=== PATIENT | male | born 1940 | race Caucasian/White ===

== ENCOUNTER 2019-06-22 11:35 | Inpatient (IN) | payer MEDICARE, OTHER ==
[~2019-06-22] VITALS: Ht 170.2 cm; Wt 62.6 kg
--- NOTE | 2019-06-22 12:08 | NUR ---
Dr Cui at the bedside for MSE.
--- NOTE | 2019-06-22 12:11 | NUR ---
Pt BIB SMART team and [employer] on 5150 hold, DTS and DTO.PT is awake and verbally responsive, unable to recall date and time. pleasent and cooperative at this time.
[2019-06-22 12:19] LABS: BASOPHILS # (AUTO) 0.1 K/uL (0.0-8.0); BASOPHILS % (AUTO) 0.6 % (0.0-2.0); EOSINOPHILS # (AUTO) 0.1 K/uL (0.0-0.7); EOSINOPHILS % (AUTO) 1.7 % (0.0-7.0); HEMATOCRIT 43.3 % (36.7-47.1); HEMOGLOBIN 14.1 g/dL (12.5-16.3); LYMPHOCYTES # (AUTO) 2.5 K/uL (20.0-40.0); LYMPHOCYTES % (AUTO) 28.7 % (20.5-51.5); MEAN CORPUSCULAR HEMOGLOBIN 28.9 uug (23.8-33.4); MEAN CORPUSCULAR HGB CONC 33 g/dL (32.5-36.3); MEAN CORPUSCULAR VOLUME 88.6 fL (73.0-96.2); MONOCYTES # (AUTO) 0.6 K/uL (2.0-10.0); MONOCYTES % (AUTO) 7.6 % (0.0-11.0); NEUTROPHILS # (AUTO) 5.3 K/uL (1.8-8.9); NEUTROPHILS % (AUTO) 61.4 % (38.5-71.5); PLATELET COUNT (AUTO) 210 K/uL (152-348); RED BLOOD CELL COUNT(AUTO) 4.88 MIL/uL (4.06-5.63); WHITE BLOOD COUNT (AUTO) 8.6 K/uL (3.6-10.2)
[2019-06-22 12:22] LABS: *BILIRUBIN,URIN NEGATIVE (NEGATIVE); *BLOOD, URINE NEGATIVE (NEGATIVE); *CLARITY,URINE CLEAR (CLEAR); *COLOR,URINE YELLOW (YELLOW); *KETONES,URINE NEGATIVE (NEGATIVE); *UROBILINOGEN,URINE 0.2 E.U./dl (NORMAL); LEUKOCYTE ESTERASE ,URINE NEGATIVE (NEGATIVE); NITRITE, URINE NEGATIVE (NEGATIVE); PH,URINE 7.5 (5.0-8.0); UGLUCOSE NEGATIVE (NEGATIVE)
[2019-06-22 12:26] LABS: CARBON DIOXIDE 32 mmol/L (21-32); CHLORIDE 101 mmol/L (98-107); GLUCOSE 96 mg/dL (74-106); POTASSIUM 4.1 mmol/L (3.5-5.1); UREA NITROGEN, BLOOD 24 mg/dL (7-18)
[2019-06-22 12:32] LABS: ACETAMINOPHEN < 2.0 ug/mL (10-30); ALANINE AMINOTRANSFERASE 23 U/L (16-63); ALKALINE PHOSPHATASE 98 U/L (50-136); ASPARTATE AMINOTRANSFERASE 27 U/L (15-37); BILIRUBIN,DIRECT 0.2 mg/dL (0.0-0.2); BILIRUBIN,TOTAL 0.5 mg/dL (0.2-1.0); TOTAL PROTEIN, SERUM 8.1 g/dL (6.4-8.2)
[2019-06-22 12:34] LABS: *AMPHETAMINE, URINE NEGATIVE (NEGATIVE); *BARBITURATE, URINE NEGATIVE (NEGATIVE); *CANNABINOID, URINE NEGATIVE (NEGATIVE); *COCCAINE, URINE NEGATIVE (NEGATIVE); *OPIATE, URINE NEGATIVE (NEGATIVE); *PHENCYCLIDINE SCREEN,URINE NEGATIVE (NEGATIVE)
--- NOTE | 2019-06-22 12:41 | NUR ---
Pt is medically cleared by DR Cui.
[2019-06-22 12:44] LABS: ETHANOL < 3 MG/DL (0-0)
[2019-06-22] MEDS ORDERED: MAGNESIUM HYDROXIDE 30 ML LIQUID UDC PO PRN (13:00)
[2019-06-22] MEDS ORDERED: MAG HYDROX/AL HYDROX/SIMETH 30 ML LIQUID UDC PO PRN (13:00)
[2019-06-22 13:15] VITALS: BP 146/90
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
[2019-06-22 21:00] VITALS: BP 139/60
[2019-06-22] MEDS: TEMAZEPAM 7.5 MG CAPSULE PO PRN (21:10)
--- NOTE | 2019-06-22 23:54 | NUR ---
PATIENT RECEIVED IN THE HALLWAY WONDERING IN THE NURSES UNIT, REQUIRES CONSTANT REDIRECTION. PATIENT ALERT/ORIENTED X1 WITH CONFUSION NOTED, DISORIENTED, DISORGANIZED, ANXIOUS, AND PARANOID. PATIENT COMPLAINT WITH MEDICATION. PATIENT IS CONTINENT WITH EPISODES OF INCONTINENT. BED IN LOWEST POSITION, BED LOCKED, AND BED ALARM ON WHILE IN BED. PATIENT IN NO APPARENT DISTRESS WILL CONTINUE TO MONITOR.
[2019-06-23 07:01] LABS: MAGNESIUM 2.2 mg/dL (1.8-2.4); PHOSPHOROUS 3.5 mg/dL (2.5-4.9)
[2019-06-23 07:02] LABS: BILIRUBIN,TOTAL 0.6 mg/dL (0.2-1.0); POTASSIUM 3.7 mmol/L (3.5-5.1); TOTAL PROTEIN, SERUM 7.2 g/dL (6.4-8.2)
[2019-06-23 07:10] LABS: THYROID STIMULATING HORMONE 1.073 mIU/mL (0.358-3.740)
[2019-06-23 07:30] VITALS: BP 154/64
--- NOTE | 2019-06-23 13:18 | NUR ---
Social Work Note: This contract technical writer received a phone call from Olivia ([phone]) and Melody ([phone]) who work at [employer] and are patient's protective services case worker.
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
--- NOTE | 2019-06-23 15:20 | NUR ---
Social Work Initial Discharge Plan: Patient currently resides at [address] [facility] [address] [place] [id number]; ([phone]). Per patient, he would like to return back home. home economics extension worker spoke with patient's landlord Adalid ([phone]) who stated that patient is welcomed back upon discharge. home economics extension worker will work with the patient and the MD regarding appropriate discharge planning. home economics extension worker will form a safe and proper discharge.
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
--- NOTE | 2019-06-23 15:47 | NUR ---
Social Work APS Report: This curriculum writer made an APS report at [facility] (Intake ID [id number]) for self-neglect.
[2019-06-23 16:00] VITALS: BP 100/68
[2019-06-23] MEDS: CLONAZEPAM 0.5 MG TABLET PO SCH ×2 (16:43→22:44)
[2019-06-23 20:00] VITALS: BP 110/58
[2019-06-23] MEDS: TEMAZEPAM 7.5 MG CAPSULE PO PRN (23:44)
[2019-06-24 07:30] VITALS: BP 142/73
[2019-06-24] MEDS: QUETIAPINE FUMARATE 25 MG TABLET PO SCH ×2 (09:24→20:41)
--- NOTE | 2019-06-24 11:15 | NUR ---
Gps/Senior Writer- Stayed in his group therapy participating , medications compliant .Encouraged verbalizations of his needs, safety reviewed and emphasized.
[2019-06-24] MEDS: CLONAZEPAM 0.5 MG TABLET PO SCH (13:08)
--- NOTE | 2019-06-24 14:55 | NUR ---
Social Work Individual Therapy: slab worker met with patient for brief counseling to address patients delusional thought content. Patient did not want to speak to this scientific writer at the moment. This scientific writer assessed to see if patient is experiencing auditory/visual hallucinations, patient denied. slab worker will attempt to meet with patient again.
[2019-06-24 15:23] VITALS: BP 94/45
--- NOTE | 2019-06-24 15:35 | NUR ---
Social Work Firearms Report: Dental Associate completed and submitted a [employer] firearms report for 5250 grave disability certification. A copy of report has been placed in patient's chart.
[2019-06-24 21:17] VITALS: BP 122/69
[2019-06-25 07:30] VITALS: BP 176/82
[2019-06-25] MEDS: QUETIAPINE FUMARATE 25 MG TABLET PO SCH ×2 (08:35→21:00)
[2019-06-25] MEDS: CLONAZEPAM 0.5 MG TABLET PO SCH (09:43)
[2019-06-25] MEDS: ACETAMINOPHEN 325 MG TABLET PO PRN (10:16)
[2019-06-25] MEDS ORDERED: CLONIDINE HCL 0.1 MG TABLET PO PRN (11:00)
[2019-06-25 15:31] VITALS: BP 127/85
[2019-06-25 20:00] VITALS: BP 121/79
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
[2019-06-26 07:30] VITALS: BP 147/82
[2019-06-26] MEDS: QUETIAPINE FUMARATE 25 MG TABLET PO SCH ×2 (08:50→20:40)
--- NOTE | 2019-06-26 11:58 | NUR ---
Gps/General Neurologist-Remains with paranoia that people are stealing something from him, all his papers from his bedside table that he's working on are gone. Tried to reorient and redirect patient from time to time.
[2019-06-26 16:00] VITALS: BP 142/67
[2019-06-26 20:00] VITALS: BP 146/60
--- NOTE | 2019-06-26 20:30 | NUR ---
RECEIVED PATIENT IN HIS ROOM IN BED ASLEEP BUT EASILY AROUSABLE. PATIENT NOTED A/O X 3. AMBULATORY WITH A FWW. NOTED HYPERVERBAL. AFFECT IS BRIGHT, MOOD IS LABILE. PATIENT NOTED LESS IRRITABLE. ABLE TO VERBALIZED FEELINGS. SAFETY AND FALL PRECAUTION IN PLACE. PATIENT IS REASSURED FOR HIS SAFETY, V/S STABLE, WILL CONTINUE TO MONITOR.
[2019-06-27 07:30] VITALS: BP 161/73
[2019-06-27] MEDS: QUETIAPINE FUMARATE 25 MG TABLET PO SCH ×2 (09:23→20:00)
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
[2019-06-27] MEDS: CLONAZEPAM 0.5 MG TABLET PO PRN (14:57)
[2019-06-27 15:48] VITALS: BP 133/76
[2019-06-27 20:00] VITALS: BP 124/66
[2019-06-28] MEDS: QUETIAPINE FUMARATE 25 MG TABLET PO SCH ×2 (08:21→20:34)
[2019-06-28 08:28] VITALS: BP 160/79
--- NOTE | 2019-06-28 09:30 | NUR ---
Social Work Family Contact: slurry worker contacted Olivia ([phone]) and Mateo ([phone]) heel caser from [employer]. This publications writer left them a voicemail stating that patient agreed for a assisted. This publications writer is looking into finding a placement for patient.
--- NOTE | 2019-06-28 09:59 | NUR ---
Social Work Coordination of Care: Per Court ([phone]), patient is accepted to [facility].
[2019-06-28] MEDS: CLONAZEPAM 0.5 MG TABLET PO PRN (11:03)
--- NOTE | 2019-06-28 11:08 | NUR ---
GPS: PATIENT CLAM COOPERATIVE WHEN SUDDENLY HE STARTED TO GET CONFUSED AND IRRITATED, PATIENT WAS REDIRECTED , PRN MEDICATION WAS GIVEN , PATIENT DENIES SI AND HI AT THIS TIME
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
[2019-06-28 16:08] VITALS: BP 126/49
--- NOTE | 2019-06-28 18:53 | NUR ---
GPS: PATIENT AOX1, PATIENT CONFUSED HOWEVER REDIRECTABLE, PATIENT JOINED THE GROUP ACTIVITY, AND SEEN HAVING GOOD CONVERSATION WITH ROOMMATE, PATIENT STAYED IN HIS ROOM WITH TIMES THAT HE WALL WITH FWW, WILL CONTINUE MONITOR
[2019-06-28 20:00] VITALS: BP 155/83
--- NOTE | 2019-06-28 20:00 | NUR ---
RECEIVED PATIENT IN HIS ROOM IN BED. HE IS NOTED AWAKE A/O X2. PATIENT NOTED CALM AND PLEASANT UPON APPROACHED. PATIENT ABLE TO VERBALIZED FEELINGS. 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 PATIENT NOTED REDIRECTABLE. SAFETY AND FALL PRECAUTION IN PLACE. PT IS REASSURED FOR HIS SAFETY. V/S STABLE, WILL CONTINUE TO MONITOR.
[2019-06-28] MEDS: ACETAMINOPHEN 325 MG TABLET PO PRN (21:39)
[2019-06-28] MEDS: TEMAZEPAM 7.5 MG CAPSULE PO PRN (23:58)
[2019-06-29 07:30] VITALS: BP 154/93
[2019-06-29] MEDS: QUETIAPINE FUMARATE 25 MG TABLET PO SCH ×2 (08:11→21:18)
--- NOTE | 2019-06-29 10:02 | NUR ---
Social Work Note: cellophane worker received a phone call from Fabian ([phone]) who stated that upon discharged she would want to know when patient will leave. Fabian is a worker from [facility].
--- NOTE | 2019-06-29 10:11 | NUR ---
Social Work Family Contact: calender worker helper contacted patients heel caser from [facility] ([phone]) and stated that patient will be discharged to [facility]. This telegraphic typewriter operator left a detailed voicemail.
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
[2019-06-29] MEDS: CLONAZEPAM 0.5 MG TABLET PO PRN (14:21)
--- NOTE | 2019-06-29 14:50 | NUR ---
Social Work Individual Therapy: No group is being held due to COVID-19 virus precautions. signal worker helper met with patient to discuss topic Identifying a support system. Patient presenting problem is delusional thought process. signal worker helper provided active listening, empathy and understanding. Patient lianne a picture and shared about his passion for art. Patient shared his goals and wanting to go home to continue drawing.
[2019-06-29 16:00] VITALS: BP 156/70
[2019-06-29 23:15] VITALS: BP 114/75
[2019-06-30 08:03] VITALS: BP 178/93
[2019-06-30] MEDS: QUETIAPINE FUMARATE 25 MG TABLET PO SCH ×2 (08:55→20:10)
[2019-06-30 09:05] VITALS: BP 158/84
[2019-06-30 09:08] VITALS: BP 178/93
--- NOTE | 2019-06-30 10:18 | NUR ---
Social Work Firearms Report ([employer]): Returning Officer completed and submitted a [employer] firearms report for 5250 grave disability certification. A copy of report has been placed in patient chart.
--- NOTE | 2019-06-30 14:29 | NUR ---
Social Work Individual Therapy: No group is being held due to COVID-19 virus precautions. community organization worker met with patient to discuss topic setting boundaries. Patient presenting problem is delusional thought process. community organization worker provided active listening and explored patient's feelings and thoughts. 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 Patient is also happy to be leaving tomorrow.
[2019-06-30] MEDS: CLONAZEPAM 0.5 MG TABLET PO PRN (15:57)
[2019-06-30 17:04] VITALS: BP 155/88
[2019-06-30 20:27] VITALS: BP 130/86
[2019-07-01 07:54] VITALS: BP 147/81
--- NOTE | 2019-07-01 08:11 | NUR ---
Social Work Discharge Note: Patient will be discharged to jail facility, [facility] [place] [address]; ) via Ambulance transportation at 1:30PM. Wedding Photographer spoke with Court Structural Drafter at [facility]; ([phone]), who stated patient will be accepted back at facility today. Patient does not have any family members, however; patients family preservation caseworker from [facility] ([phone]) and [facility] ([phone]) are aware and agreeable with patients discharge. Patient is alert and oriented x2-3 and is unable to plan for self-care. Patient denies any suicidal or homicidal ideations. Patient is aware and agreeable with discharge plans. Patient presents with euthymic mood and congruent affect. Patient will continue to follow-up with Psychiatrist Dr. Santoyo and Kinesiology Internship Dr. Can at [facility] [address] [place] [address]; ).
[2019-07-01] MEDS: QUETIAPINE FUMARATE 25 MG TABLET PO SCH (08:21)
[2019-07-01 08:22] VITALS: BP 147/81
[2019-07-01] MEDS ORDERED: LISINOPRIL 5 MG TABLET PO SCH (09:00)
--- NOTE | 2019-07-01 16:45 | NUR ---
1100 Called [facility] spoke with ELENA Parekh report given regarding patient will be discharged to their facility. RN informed regarding medications to continue upon discharged and staff verbalized understanding. 1630 Patient discharged to [facility] via ambulance stable codition.Patient denies SI/HI. No delusion . No av hallucination noted.
== END 2019-07-01 16:30 | DRG 885 ==
LOC: ER 11:35 → GPS 12:47
PROVIDERS: ADMIT Psychiatry & Neurology Psychiatry; ATTEND Nurse Practitioner Acute Care
DX: F29 Unspecified psychosis not due to a substance or known physiological condition (principal); E43 Unspecified severe protein-calorie malnutrition; N17.0 Acute kidney failure with tubular necrosis; M62.84 Sarcopenia; I10 Essential (primary) hypertension; Z68.21 Body mass index [BMI] 21.0-21.9, adult; Z73.6 Limitation of activities due to disability; F03.90 Unspecified dementia, unspecified severity, without behavioral disturbance, psychotic disturbance, mood disturbance, and anxiety
CPT/HCPCS: 36415; 71045; 80307; 83735; 84100; 84443; 85025; 93005; A4663; G0480; G0480-TC

== ENCOUNTER 2020-06-26 18:23 | Inpatient (IN) | payer MEDICARE, OTHER ==
[~2020-06-26] VITALS: Ht 177.8 cm; Wt 71.7 kg
--- NOTE | 2020-06-26 18:25 | NUR ---
received pt 79 yrs male came by prasanna from [facility] for evaluation poor intack for last 3 day awake and alert x3 no weekness no sob skin warm and dry to touch
--- NOTE | 2020-06-26 19:05 | NUR ---
HAND OFF TO MAGDALENA ODELL RN 7P-7A
[2020-06-26 19:42] LABS: BASOPHILS # (AUTO) 0.1 K/uL (0.0-8.0); BASOPHILS % (AUTO) 0.7 % (0.0-2.0); EOSINOPHILS # (AUTO) 0.5 K/uL (0.0-0.7); EOSINOPHILS % (AUTO) 5.1 % (0.0-7.0); HEMATOCRIT 39.9 % (36.7-47.1); HEMOGLOBIN 12.8 g/dL (12.5-16.3); LYMPHOCYTES # (AUTO) 3.5 K/uL (20.0-40.0); LYMPHOCYTES % (AUTO) 37.1 % (20.5-51.5); MEAN CORPUSCULAR HEMOGLOBIN 28.4 uug (23.8-33.4); MEAN CORPUSCULAR HGB CONC 32 g/dL (32.5-36.3); MEAN CORPUSCULAR VOLUME 88.8 fL (73.0-96.2); MONOCYTES # (AUTO) 0.8 K/uL (2.0-10.0); MONOCYTES % (AUTO) 8.9 % (0.0-11.0); NEUTROPHILS # (AUTO) 4.5 K/uL (1.8-8.9); NEUTROPHILS % (AUTO) 48.2 % (38.5-71.5); PLATELET COUNT (AUTO) 232 K/uL (152-348); RED BLOOD CELL COUNT(AUTO) 4.49 MIL/uL (4.06-5.63); WHITE BLOOD COUNT (AUTO) 9.4 K/uL (3.6-10.2)
[2020-06-26 19:49] LABS: CARBON DIOXIDE 28 mmol/L (21-32); CHLORIDE 103 mmol/L (98-107); CREATININE 1.1 mg/dL (0.6-1.3); GLUCOSE 103 mg/dL (74-106); POTASSIUM 4.1 mmol/L (3.5-5.1); UREA NITROGEN, BLOOD 21 mg/dL (7-18)
[2020-06-26 19:55] LABS: ALANINE AMINOTRANSFERASE 19 U/L (16-63); ALKALINE PHOSPHATASE 82 U/L (50-136); ASPARTATE AMINOTRANSFERASE 14 U/L (15-37); BILIRUBIN,DIRECT 0.1 mg/dL (0.0-0.2); BILIRUBIN,TOTAL 0.2 mg/dL (0.2-1.0); ETHANOL < 3 MG/DL (0-0); TOTAL PROTEIN, SERUM 7.6 g/dL (6.4-8.2)
[2020-06-26 19:56] LABS: ACETAMINOPHEN < 2.0 ug/mL (10-30)
[2020-06-26 20:21] LABS: *BILIRUBIN,URIN NEGATIVE (NEGATIVE); *CLARITY,URINE CLEAR (CLEAR); *COLOR,URINE YELLOW (YELLOW); *KETONES,URINE NEGATIVE (NEGATIVE); *UROBILINOGEN,URINE 0.2 E.U./dl (NORMAL); LEUKOCYTE ESTERASE ,URINE NEGATIVE (NEGATIVE); NITRITE, URINE NEGATIVE (NEGATIVE); UGLUCOSE NEGATIVE (NEGATIVE)
[2020-06-26 20:22] LABS: *BLOOD, URINE TRACE INTACT (NEGATIVE)
[2020-06-26 20:26] LABS: *AMPHETAMINE, URINE NEGATIVE (NEGATIVE); *CANNABINOID, URINE NEGATIVE (NEGATIVE); *COCCAINE, URINE NEGATIVE (NEGATIVE); *OPIATE, URINE NEGATIVE (NEGATIVE); *PHENCYCLIDINE SCREEN,URINE NEGATIVE (NEGATIVE)
[2020-06-26] MEDS ORDERED: MAGNESIUM HYDROXIDE 30 ML LIQUID UDC PO PRN (21:45)
[2020-06-26] MEDS ORDERED: HYDROCODONE/APAP 5-325MG TABLET PO PRN (21:45)
[2020-06-26] MEDS ORDERED: ONDANSETRON 4 MG/2 ML VIAL IV PRN (21:45)
[2020-06-26] MEDS ORDERED: ACETAMINOPHEN 325 MG TABLET PO PRN (21:45)
[2020-06-26] MEDS ORDERED: Z GUARD REMEDY PASTE 57 GM TUBE TOP PRN (21:45)
[2020-06-26] MEDS ORDERED: HALOPERIDOL LACTATE 5 MG/1 ML VIAL ONE (21:56)
[2020-06-26] MEDS ORDERED: HALOPERIDOL LACTATE 5 MG/1 ML VIAL IM ONE (22:00)
[2020-06-26 22:54] LABS: BACTERIA,URINE NONE SEEN /HPF (NONE SEEN); SQUAMOUS EPITHELIAL CELL,UR FEW /HPF (NONE SEEN); WBC,URINE 0-3 /HPF (0-3)
[2020-06-26 22:55] LABS: URINE AMORPHOUS URATE FEW /HPF
--- NOTE | 2020-06-26 23:20 | NUR ---
transfered to 3rd floor med surg via [facility].
[2020-06-26] MEDS: IV NS 1000 ML 1,000 ML IV PRN (23:30)
[2020-06-26] MEDS: HALOPERIDOL LACTATE 5 MG/1 ML VIAL IM ONE ×2 (23:30→23:48)
[2020-06-27] MEDS ORDERED: vitamin D3 PO (00:26)
[2020-06-27] MEDS ORDERED: LISI10TA29 PO (00:26)
[2020-06-27] MEDS ORDERED: ASCO-382 PO (00:26)
[2020-06-27] MEDS ORDERED: MIRT15TA7 PO (00:26)
[2020-06-27] MEDS ORDERED: MULT-1188 PO (00:26)
[2020-06-27] MEDS ORDERED: BUSP5TAB3 PO (00:26)
[2020-06-27] MEDS ORDERED: MELA5TAB PO (00:26)
[2020-06-27] MEDS ORDERED: hydrALAZINE HCL 50 MG TABLET PO SCH (00:45)
[2020-06-27 01:10] VITALS: BP 185/77
[2020-06-27 02:30] VITALS: BP 156/65
[2020-06-27 04:45] VITALS: BP 135/66
[2020-06-27 07:05] LABS: BASOPHILS % (AUTO) 0.4 % (0.0-2.0); EOSINOPHILS # (AUTO) 0.3 K/uL (0.0-0.7); EOSINOPHILS % (AUTO) 2.3 % (0.0-7.0); HEMATOCRIT 43.2 % (36.7-47.1); HEMOGLOBIN 14.5 g/dL (12.5-16.3); LYMPHOCYTES # (AUTO) 3.4 K/uL (20.0-40.0); LYMPHOCYTES % (AUTO) 27.3 % (20.5-51.5); MEAN CORPUSCULAR HGB CONC 34 g/dL (32.5-36.3); MEAN CORPUSCULAR VOLUME 89.4 fL (73.0-96.2); MONOCYTES # (AUTO) 0.9 K/uL (2.0-10.0); MONOCYTES % (AUTO) 7.4 % (0.0-11.0); NEUTROPHILS # (AUTO) 7.7 K/uL (1.8-8.9); NEUTROPHILS % (AUTO) 62.6 % (38.5-71.5); PLATELET COUNT (AUTO) 252 K/uL (152-348); RED BLOOD CELL COUNT(AUTO) 4.84 MIL/uL (4.06-5.63); WHITE BLOOD COUNT (AUTO) 12.3 K/uL (3.6-10.2)
[2020-06-27 07:11] LABS: MAGNESIUM 2.5 mg/dL (1.8-2.4)
[2020-06-27] MEDS ORDERED: hydrALAZINE HCL 50 MG TABLET PO PRN (07:15)
--- NOTE | 2020-06-27 07:30 | NUR ---
Received patient awake in bed. alert and oriented x 2. on room air. no signs of acute distress. no complaints of pain at this time. able to make needs known. bed alarm on. patient with right FA #20 gauge with NS running at 75cc/hr. will continue to monitor.
[2020-06-27] MEDS ORDERED: Medication Not On Formulary EA (Melatonin 10 MG) PO PRN (07:45)
[2020-06-27] MEDS ORDERED: MELATONIN 3 MG TABLET PO PRN (08:15)
[2020-06-27] MEDS ORDERED: Medication Not On Formulary EA (Ascorbic Acid (Vitamin C TAB) 1,000 MG) PO SCH (09:00)
[2020-06-27] MEDS: ASCORBIC ACID 500 MG TABLET PO SCH ×2 (09:19→16:36)
[2020-06-27] MEDS: MULTIVIT, IRON, MIN NO. 8, FA TABLET PO SCH (09:19)
[2020-06-27] MEDS: busPIRone 5 MG TABLET PO SCH ×2 (09:19→16:37)
[2020-06-27] MEDS: LISINOPRIL 10 MG TABLET PO SCH (09:19)
[2020-06-27 11:31] VITALS: BP 149/81
[2020-06-27 15:30] VITALS: BP 150/60
--- NOTE | 2020-06-27 16:00 | NUR ---
Patient became agitated and would not follow commands. Patient did not want to stay in bed and wanted the bed rails down. Patient also attempted to pull IV access. Contacted Dr. Can and he ordered Ativan 1mg Q6PRN agitation.
[2020-06-27] MEDS: IV NS 1000 ML 1,000 ML IV PRN (16:12)
[2020-06-27] MEDS: LORAZEPAM 1 MG TABLET PO PRN (16:37)
[2020-06-27] MEDS: ENSURE ENLIVE (VAN) 240 ML LIQUID PO SCH (17:15)
--- NOTE | 2020-06-27 19:04 | NUR ---
Patient awake in bed. on room air. no signs of acute distress. bed alarm on. patient able to make needs known. denies of pain at the moment. will endorse to incoming shift.
[2020-06-27 20:04] VITALS: BP 136/88
[2020-06-27] MEDS ORDERED: MIRTAZAPINE 15 MG TABLET PO SCH (21:00)
[2020-06-28 00:04] VITALS: BP 147/95
--- NOTE | 2020-06-28 03:00 | NUR ---
PATIENT IS ALERT AND VERBALLY RESPONSIVE. CAN MAKE NEEDS KNOWN. ON ROOM AIR, TOLERATED WELL. OBSERVED WITH INTERRUPTED SLEEP DURING THE NIGHT WITH MULTIPLE AWAKENINGS RELATED TO BLADDER URGENCIES. FALL AND SAFETY PRECAUTIONS OBSERVED. ONGOING IV HYDRATION. PATIENT WITH LEFT FOREARM PERIPHERAL LINE, INTACT AND PATENT. ALL NEEDS ATTENDED. WILL CONTINUE TO MONITOR PATIENT.
[2020-06-28] MEDS: LORAZEPAM 1 MG TABLET PO PRN ×2 (04:02→10:06)
[2020-06-28 06:22] LABS: CARBON DIOXIDE 28 mmol/L (21-32); CHLORIDE 106 mmol/L (98-107); CREATININE 0.9 mg/dL (0.6-1.3); GLUCOSE 97 mg/dL (74-106); POTASSIUM 3.7 mmol/L (3.5-5.1); UREA NITROGEN, BLOOD 14 mg/dL (7-18)
[2020-06-28 06:28] LABS: BASOPHILS % (AUTO) 0.5 % (0.0-2.0); EOSINOPHILS # (AUTO) 0.2 K/uL (0.0-0.7); EOSINOPHILS % (AUTO) 2.4 % (0.0-7.0); HEMATOCRIT 44.4 % (36.7-47.1); HEMOGLOBIN 14.3 g/dL (12.5-16.3); LYMPHOCYTES # (AUTO) 3.3 K/uL (20.0-40.0); LYMPHOCYTES % (AUTO) 35.6 % (20.5-51.5); MEAN CORPUSCULAR HEMOGLOBIN 28.9 uug (23.8-33.4); MEAN CORPUSCULAR HGB CONC 32 g/dL (32.5-36.3); MEAN CORPUSCULAR VOLUME 89.7 fL (73.0-96.2); MONOCYTES # (AUTO) 0.9 K/uL (2.0-10.0); MONOCYTES % (AUTO) 9.3 % (0.0-11.0); NEUTROPHILS # (AUTO) 4.8 K/uL (1.8-8.9); NEUTROPHILS % (AUTO) 52.2 % (38.5-71.5); PLATELET COUNT (AUTO) 233 K/uL (152-348); RED BLOOD CELL COUNT(AUTO) 4.95 MIL/uL (4.06-5.63); WHITE BLOOD COUNT (AUTO) 9.2 K/uL (3.6-10.2)
[2020-06-28] MEDS: MULTIVIT, IRON, MIN NO. 8, FA TABLET PO SCH (08:24)
[2020-06-28] MEDS: ASCORBIC ACID 500 MG TABLET PO SCH ×2 (08:24→16:39)
[2020-06-28] MEDS: busPIRone 5 MG TABLET PO SCH ×2 (08:24→16:38)
[2020-06-28] MEDS: LISINOPRIL 10 MG TABLET PO SCH (08:25)
[2020-06-28] MEDS: ENSURE ENLIVE (VAN) 240 ML LIQUID PO SCH ×3 (08:25→17:20)
[2020-06-28 11:47] VITALS: BP 133/87
[2020-06-28] MEDS ORDERED: LORAZEPAM 2 MG/1 ML VIAL IV ONE (14:45)
--- NOTE | 2020-06-28 14:54 | NUR ---
patient noted with agitation and getting combative, called dr banuelos, with order to give ativan as ordered, administered, called dr garland as well, left message to call back, continue to monitor for patient behavior,safety precautions are in place
--- NOTE | 2020-06-28 15:03 | NUR ---
zenaida wasted with wittness of another nurse, patient refused to take it.
[2020-06-28 16:00] VITALS: BP 94/63
--- NOTE | 2020-06-28 16:05 | NUR ---
dr garland called and gave the verbal order for seroquel 25mg twice a day orally, order noted
[2020-06-28] MEDS: QUETIAPINE FUMARATE 25 MG TABLET PO SCH (16:38)
--- NOTE | 2020-06-28 18:52 | NUR ---
Patient is in bed, calm, comfortable, had on and off episodes of agitation during the day, getting up and trying to go to unsafe places, walking into nursing station, and another patient's room, upon redirection, getting upset and agitated, however able to manage after pharmacological intervention, effective. no acute distress noted.
[2020-06-28 20:00] VITALS: BP 100/67
--- NOTE | 2020-06-28 20:30 | NUR ---
RECEIVED PATIENT ASLEEP IN BED. EASILY AROUSABLE BUT QUICKLY FALLS BACK ASLEEP. VSS. NO S/S OF ANY RESP. DISTRESS, NO S/S OF PAIN OR DISCOMFORT. NO FACIAL GRIAMCE NOTED. H/L INTACT AND PATENT. BED ALARM ON. CALL LIGHT IN REACH. ALL NEEDS ATTENDED. WILL CONTINUE TO MONITOR AND ASSESS.
[2020-06-28] MEDS ORDERED: MIRTAZAPINE 15 MG TABLET PO SCH ×2 (21:00)
[2020-06-28] MEDS: MIRTAZAPINE 15 MG TABLET PO SCH (21:00)
[2020-06-29 04:10] VITALS: BP_SYST 104; BP_SYST 150; BP_DIAS 63; BP_DIAS 76
[2020-06-29] MEDS: LORAZEPAM 1 MG TABLET PO PRN (05:07)
--- NOTE | 2020-06-29 05:15 | NUR ---
PATIENT AWAKE IN BED, EASILY AGITATED, TRYING TO CLIMB OOB. PT. GIVEN ATIVAN 1MG PO PRN FOR AGITATION. VSS. WILL CONTINUE TO MONITOR AND ASSESS.
[2020-06-29] MEDS: ASCORBIC ACID 500 MG TABLET PO SCH (08:02)
[2020-06-29] MEDS: QUETIAPINE FUMARATE 25 MG TABLET PO SCH (08:02)
[2020-06-29] MEDS: MULTIVIT, IRON, MIN NO. 8, FA TABLET PO SCH (08:02)
[2020-06-29] MEDS: LISINOPRIL 10 MG TABLET PO SCH (08:07)
[2020-06-29] MEDS: ENSURE ENLIVE (VAN) 240 ML LIQUID PO SCH (08:07)
[2020-06-29 12:00] VITALS: BP 126/79
== END 2020-06-29 12:30 | DRG 682 ==
LOC: ER 18:29 → MEDSURG3 23:07
PROVIDERS: ADMIT Internal Medicine; ATTEND Internal Medicine
DX: N17.0 Acute kidney failure with tubular necrosis (principal); G93.41 Metabolic encephalopathy; F33.3 Major depressive disorder, recurrent, severe with psychotic symptoms; R62.7 Adult failure to thrive; R00.1 Bradycardia, unspecified; Z68.22 Body mass index [BMI] 22.0-22.9, adult; Z20.822 Contact with and (suspected) exposure to COVID-19; I10 Essential (primary) hypertension; F29 Unspecified psychosis not due to a substance or known physiological condition; R53.1 Weakness; F01.50 Vascular dementia, unspecified severity, without behavioral disturbance, psychotic disturbance, mood disturbance, and anxiety
CPT/HCPCS: 36415; 70030-TC; 71045; 83605; 83735; 84100; 84443; 85025; 85730; 87040; 87077; 87086; 93005; G0378; G0480; J1630; J2060; J7030